=== PATIENT | male | born 1995 | race Caucasian/White ===

== ENCOUNTER 2017-07-25 11:50 | Emergency (ER) | payer OTHER ==
[2017-07-25 11:57] VITALS: O2SAT 99
[2017-07-25] MEDS ORDERED: Sodium Chloride 0.9% 1,000 ML IV STA (12:23)
--- NOTE | 2017-07-25 12:27 | ED PDOC ---
Arrival/HPI - General Chief Complaint: Male Genitourinary Time Seen by Provider: 07/25/17 11:57 Historian: Patient - History of Present Illness Narrative History of Present Illness (Text): 07/25/17 12:14 A 21 year old male, with no significant past medical history, presents to the emergency department complaining of left flank pain since last night. Patient report pain "comes and goes" and describes sensation as "bubble-like". Also, patient noticed a spot of blood this morning. Patient notes recently has become increasingly thirsty and has been drinking a lot of water, and has frequent urge to urinate with stinging sensation. Since July 20, he been experiencing discomfort in the penis. Patient denies any fever, chills, nausea, vomiting, diarrhea, abdominal pain, constipation, appetite changes, chest pain, shortness of breath, dysuria, rash in penile area, or any other complaints. Patient denies any ever having vaginal intercourse but says he has had oral sex in the past. No PMD Past Medical History - Provider Review Nursing Documentation Reviewed: Yes - Psychiatric Hx Substance Use: Yes (marijuana) Family/Social History - Physician Review Nursing Documentation Reviewed: Yes Family/Social History: Diabetes Smoking Status: Never Smoked Hx Alcohol Use: Yes Frequency of alcohol use: Socially Hx Substance Use: Yes (marijuana) Allergies/Home Meds Allergies/Adverse Reactions: Allergies No Known Allergies Allergy (Verified 07/25/17 11:57) Review of Systems - Physician Review All systems were reviewed & negative as marked: Yes - Review of Systems Constitutional: absent: Fevers, Night Sweats Respiratory: absent: SOB Cardiovascular: absent: Chest Pain Gastrointestinal: absent: Abdominal Pain, Constipation, Diarrhea, Nausea, Vomiting, Appetite Changes Genitourinary Male: Frequency, Hematuria (patient noticed spot of blood in urine this morning). absent: Dysuria Musculoskeletal: Other (left flank pain) Skin: absent: Rash (no rash in penile area) Physical Exam Vital Signs Reviewed: Yes Vital Signs Temp Pulse Resp BP Pulse Ox 07/25/17 15:00 75 18 105/69 99 07/25/17 13:45 79 18 101/68 99 07/25/17 11:53 99.3 F 87 16 99/63 L 99 Temperature: Afebrile Blood Pressure: Normal Pulse: Regular Respiratory Rate: Normal Appearance: Positive for: Well-Appearing Pain Distress: None Mental Status: Positive for: Alert and Oriented X 3 - Systems Exam Head: Present: Atraumatic, Normocephalic Pupils: Present: PERRL Conjunctiva: Present: Normal Mouth: Present: Moist Mucous Membranes Pharnyx: Present: Normal. No: ERYTHEMA, EXUDATE Neck: Present: Normal Range of Motion Respiratory/Chest: Present: Clear to Auscultation, Good Air Exchange. No: Respiratory Distress, Accessory Muscle Use Cardiovascular: Present: Regular Rate and Rhythm, Normal S1, S2. No: Murmurs Abdomen: Present: Normal Bowel Sounds. No: Tenderness, Distention, Peritoneal Signs Genitourinary Male: Present: Normal External Genitalia, Circumcised Penis. No: Lesions, Penile Discharge, Testicle Tenderness, Penile Swelling, Masses, Erythema, Hernias, Testicle Swelling Back: Present: Normal Inspection Upper Extremity: Present: Normal Inspection. No: Cyanosis, Edema Lower Extremity: Present: Normal Inspection. No: Edema Neurological: Present: GCS=15, CN II-XII Intact, Speech Normal Skin: Present: Warm, Dry, Normal Color. No: Rashes Psychiatric: Present: Alert, Oriented x 3, Normal Insight, Normal Concentration Medical Decision Making ED Course and Treatment: 07/25/17 12:20 Impression: 21 year old male with left flank pain. Physical exam shows circumcised penis, no discharge no testicular tenderness and no hernias. Overall normal exam findings. Plan: -- Abd/Pelvis CT -- Abdominal Ultrasound -- Labs -- Urinalysis -- Urine Culture -- IV Fluids -- Reassess and disposition Progress Notes: 07/25/2017 13:48 Abd/Pelvis CT IMPRESSION: No CT evidence for nephrolithiasis, obstructive uropathy or hydronephrosis. Apparent 13 mm triangular peripheral done abnormal density in the lower pole of the spleen is nonspecific and could be artifactual however is not completely evaluated on noncontrast examination. The differential considerations include less aeration, infarction, or space occupying lesion. Given patient's history of let flank pain, left upper quadrant ultrasound is recommended for definitive evaluation. Dictator: Lindsay Aragon MD 07/25/2017 15:28 Abdominal Ultrasound IMPRESSION: Normal examination. Specifically, no sonographic abnormality in the spleen. The questioned abnormality in the spleen. The questionable abnormality in the lower pole of the spleen on CT examination was likely artifactual. Dictator: Lindsay Aragon MD 07/25/17 15:59 Blood work is unremarkable on the patient. Urine shows significant pyuria. No RBCs; given flank pain, CT a/p ordered with unremarkable kidneys noted. Only finding was the noted 13 mm splenic lesion, which appeared normal on sono. Given pyuria, will treat for UTI and STD. Patient is insistent on no genital intercourse and says the oral sex he had was years ago. Patient given rocephin in the ED and will d/c on doxycycline for possible sexual source. Will also give amoxicillin for possible non-STD source. GC/chlamydia was sent - will d/c , and patient has been instructed to follow up with the medical clinic. - Lab Interpretations Lab Results: 07/25/17 12:40 07/25/17 12:40 Lab Results 07/25/17 12:40: Sodium 142, Potassium 4.7, Chloride 103, Carbon Dioxide 38 H, Anion Gap 6 L, BUN 17, Creatinine 0.9, Est GFR ( Amer) > 60, Est GFR (Non -Af Amer) > 60, Random Glucose 94, Calcium 9.5, Magnesium 2.0, Total Bilirubin 0.6, AST 32, ALT 31, Alkaline Phosphatase 72, Total Protein 7.3, Albumin 4.3, Globulin 3.0, Albumin/Globulin Ratio 1.4, Lipase 26 07/25/17 12:40: WBC 6.8, RBC 4.92, Hgb 13.4 L, Hct 39.7 L, MCV 80.7, MCH 27.2, MCHC 33.8, RDW 13.2, Plt Count 178, MPV 10.2, Gran % 55.6, Lymph % (Auto) 33.7, [place] % (Auto) 8.4 H, Eos % (Auto) 2.2, Baso % (Auto) 0.1, Gran # 3.79, Lymph # 2.3, [place] # 0.6, Eos # 0.2, Baso # 0.01 07/25/17 12:22: Urine Color Yellow, Urine Appearance Clear, Urine pH 5.5, Ur Specific [place] >= 1.030, Urine Protein Trace H, Urine Glucose (UA) Negative, Urine Ketones Negative, Urine Blood Negative, Urine Nitrate Negative, Urine Bilirubin Negative, Urine Urobilinogen 0.2, Ur Leukocyte Esterase Negative, Urine RBC Negative, Urine WBC 20 - 25, Ur Epithelial Cells 0 - 2, Urine Bacteria Few I have reviewed the lab results: Yes - RAD Interpretation Radiology Orders: 07/25/17 12:23 ABD & PELVIS W/O PO OR IV CONT [CT] Stat 07/25/17 14:22 ABDOMEN COMPLETE [US] Stat - Medication Orders Current Medication Orders: Discontinued Medications Sodium Chloride (Sodium Chloride 0.9%) 1,000 mls @ 999 mls/hr IV .Q1H1M STA Stop: 07/25/17 13:23 Last Admin: 07/25/17 12:44 Dose: 999 mls/hr eMAR Start Stop Document 07/25/17 12:44 MS (Rec: 07/25/17 12:44 MS [id number]) Intravenous Solution Start Date 07/25/17 Start Time 12:44 End Date 07/25/17 End time 14:13 Total Infusion Time 89 Ceftriaxone Sodium (Rocephin 1 Gram Ivpb) 1 gm in 100 mls @ 200 mls/hr IV ONCE STA PRN Reason: Protocol Stop: 07/25/17 13:48 Last Admin: 07/25/17 14:10 Dose: 200 mls/hr eMAR Start Stop Document 07/25/17 14:10 MS (Rec: 07/25/17 14:13 MS [id number]) Intravenous Solution Start Date 07/25/17 Start Time 14:13 - Scribe Statement The provider has reviewed the documentation as recorded by the Merary Burrows Provider Scribe Attestation: All medical record entries made by the Merary were at my direction and personally dictated by me. I have reviewed the chart and agree that the record accurately reflects my personal performance of the history, physical exam, medical decision making, and the department course for this patient. I have also personally directed, reviewed, and agree with the discharge instructions and disposition. Disposition/Present on Arrival - Present on Arrival Any Indicators Present on Arrival: No History of DVT/PE: No History of Uncontrolled Diabetes: No Urinary Catheter: No History of Decub. Ulcer: No History Surgical Site Infection Following: None - Disposition Have Diagnosis and Disposition been Completed?: Yes Diagnosis: Urinary tract infection, Pyuria Disposition: HOME/ ROUTINE Disposition Time: 15:50 Patient Plan: Discharge Patient Problems: Current Active Problems Problem Status Onset Pyuria Acute Urinary tract infection Acute Condition: GOOD Discharge Instructions (ExitCare): Urinary Tract Infection in Men (ED) Additional Instructions: Drink plenty of fluids. Follow up with the medical clinic. Return to the emergency department if any new concerning symptoms. Prescriptions: Amoxicillin [Trimox] 2 tsp PO BID #200 ml Doxycycline Monohydrate 100 mg PO BID #280 ml Ibuprofen Susp [Motrin Oral Susp] 4 tsp PO Q8H PRN #240 ml PRN Reason: Pain Referrals: [facility] [place] [Outside] - Follow up with primary Forms: [facility] (Thai)
[2017-07-25 12:28] LABS: PH,URINE 5.5 (4.7-8.0); URINE BILIRUBIN NEGATIVE (NEGATIVE); URINE BLOOD NEGATIVE (NEGATIVE); URINE GLUCOSE (UA) NEGATIVE (NEGATIVE); URINE KETONE NEGATIVE (NEGATIVE); URINE LEUKOCYTE ESTERASE NEGATIVE Leu/uL (NEGATIVE); URINE PROTEIN TRACE mg/dL (<30 mg/dL); URINE UROBILINOGEN 0.2 E.U./dL (<1 E.U./dL)
[2017-07-25 12:29] LABS: URINE APPEARANCE CLEAR (CLEAR); URINE COLOR YELLOW (YELLOW)
[2017-07-25 12:31] VITALS: BMI 28.8
[2017-07-25 12:47] LABS: URINE BACTERIA FEW (NEG); URINE EPITHELIAL CELLS 0 - 2 /hpf (0-5); URINE RBC NEGATIVE /hpf (0-2); URINE WBC 20 - 25 /hpf (0-6)
[2017-07-25 12:50] LABS: BASO # 0.01 K/mm3 (0.0-2.0); BASO % 0.1 % (0.0-3.0); EOS # 0.2 (0.0-0.7); EOS % 2.2 % (1.5-5.0); GRAN # 3.79 (1.4-6.5); GRAN % 55.6 % (50.0-68.0); HEMATOCRIT 39.7 % (42.0-52.0); LYMPH # 2.3 (1.2-3.4); LYMPH % 33.7 % (22.0-35.0); MEAN CELL VOLUME 80.7 fl (80.0-105.0); MEAN CORPUSCULAR HEMOGLOBIN 27.2 pg (25.0-35.0); MEAN CORPUSCULAR HGB CONC 33.8 g/dl (31.0-37.0); MEAN PLATELET VOLUME 10.2 fl (7.0-11.0); MONO # 0.6 (0.1-0.6); MONO % 8.4 % (1.0-6.0); RED CELL DISTRIBUTION WIDTH 13.2 % (11.5-14.5); WHITE BLOOD COUNT 6.8 10^3/ul (4.5-11.0)
[2017-07-25 13:01] LABS: ALB/GLOB RATIO 1.4 (1.1-1.8); ALKALINE PHOSPHATASE 72 U/L (38-126); ALT/SGPT 31 U/L (7-56); AST/SGOT 32 U/L (17-59); BILIRUBIN,TOTAL 0.6 mg/dL (0.2-1.3); BLOOD UREA NITROGEN 17 mg/dL (7-21); CALCIUM 9.5 mg/dL (8.4-10.5); CARBON DIOXIDE 38 mmol/L (21-33); CHLORIDE 103 mmol/L (98-107); GFR AFRICAN-AMERICAN > 60; GLUCOSE,RANDOM 94 mg/dL (70-110); LIPASE 26 U/L (23-300); POTASSIUM 4.7 mmol/L (3.6-5.0); SODIUM 142 mmol/L (132-148); TOTAL PROTEIN 7.3 g/dL (5.8-8.3)
[2017-07-25] MEDS ORDERED: cefTRIAXone 1 gm 1 GM/100 ML BAG IV STA (13:19)
--- NOTE | 2017-07-25 13:50 | CT ---
PROCEDURE: CT Abdomen and Pelvis without intravenous contrast HISTORY: Left flank pain, hematuria - r/o renal/ureteral stone COMPARISON: None. TECHNIQUE: CT scan of the abdomen and pelvis was performed without administration of intravenous contrast. Oral contrast was not administered. Coronal and sagittal reformatted images were obtained. Radiation dose: Total exam DLP = 783.50 mGy-cm. This CT exam was performed using one or more of the following dose reduction techniques: Automated exposure control, adjustment of the mA and/or kV according to patient size, and/or use of iterative reconstruction technique. FINDINGS: LOWER THORAX: The lung bases are clear. LIVER: The liver is normal in size. No gross lesion or ductal dilatation. GALLBLADDER AND BILE DUCTS: There are no calcified gallstones. PANCREAS: Normal in size. No gross lesion or ductal dilatation. SPLEEN: Normal in size. There is an apparent 13 mm triangular peripheral low-attenuation area in the lower pole of the spleen. ADRENALS: No discrete nodule. KIDNEYS AND URETERS: Both kidneys are normal in size without nephrolithiasis. No hydronephrosis. No solid mass. VASCULATURE: No aortic aneurysm. BOWEL: The small bowel loops are normal in caliber. There is large amount of stool in the colon. No bowel dilatation or obstruction APPENDIX: Normal appendix. PERITONEUM: No free fluid. No free air. LYMPH NODES: No enlarged lymph nodes. BLADDER: Partially decompressed. REPRODUCTIVE: Unremarkable. BONES: No acute fracture. Within normal limits for the patient's age. OTHER FINDINGS: None. IMPRESSION: No CT evidence for nephrolithiasis, obstructive uropathy or hydronephrosis. Apparent 13 mm triangular peripheral done abnormal density in the lower pole of the spleen is nonspecific and could be artifactual however is not completely evaluated on noncontrast examination. The differential considerations include less aeration, infarction or space occupying lesion. Given patient's history of left flank pain, left upper quadrant ultrasound examination is recommended for definitive evaluation.
--- NOTE | 2017-07-25 15:30 | US ---
HISTORY: assess spleen for abnormality noted on CT a/p COMPARISON: None. TECHNIQUE: Grayscale imaging was performed. FINDINGS: LIVER: Measures 15.1 cm. Normal echogenicity of the liver parenchyma. No mass. No intrahepatic bile duct dilatation. GALLBLADDER: There are no gallstones, wall thickening or pericholecystic fluid. The sonographic Mora's sign is negative. COMMON BILE DUCT: Measures 4.0 mm. No stones. No dilatation. PANCREAS: Unremarkable as visualized. No mass. No ductal dilatation. RIGHT KIDNEY: Measures 10.0cm. Normal echogenicity. No calculus, mass, or hydronephrosis. LEFT KIDNEY: Measures 10.6cm. Normal echogenicity. No calculus, mass, or hydronephrosis. SPLEEN: The spleen is normal in size and echotexture without focal lesion. AORTA: No aneurysmal dilatation. IVC: Unremarkable. OTHER FINDINGS: None. IMPRESSION: Normal examination. Specifically, no sonographic abnormality in the spleen. The questioned abnormality in the lower pole of the spleen on CT examination was likely artifactual.
[2017-07-25 16:11] VITALS: BP 109/64; PULSE 79; RESP 16; TEMP 98.1
== END 2017-07-25 16:10 | disposition home or self-care (01) ==
LOC: ED 11:50
DX: N39.0 Urinary tract infection, site not specified (principal)
CPT/HCPCS: 74176; 76700; 80053; 81001; 83690; 83735; 85025; 87086; 87491; 87591; 96360; 99284; J0696; J7040